=== PATIENT | female | born 1980 | race Caucasian/White ===

== ENCOUNTER 2022-09-18 09:54 | Outpatient (CLI) | payer BC ==
[2022-09-18] MEDS ORDERED: Magnevist 469MG/ML 20 ML VIAL ONE (09:55)
== END 2022-09-18 09:55 | disposition home or self-care (01) ==
LOC: CSHMRI 09:54
PROVIDERS: ATTEND Internal Medicine
DX: Z80.0 Family history of malignant neoplasm of digestive organs (principal); K86.2 Cyst of pancreas
CPT/HCPCS: 74183

== ENCOUNTER 2024-03-02 06:39 | Day surgery (SDC) | payer BC ==
[2024-02-25 08:49] VITALS: BMI 20.9
== END 2024-03-02 15:05 | disposition home or self-care (01) ==
LOC: CSHMAMMO 06:39
PROVIDERS: ATTEND Surgery
PROC: 0HBU0ZZ Excision of Left Breast, Open Approach (ICD-10-PCS; principal; 2024-03-02)
DX: C50.112 Malignant neoplasm of central portion of left female breast (principal); C77.3 Secondary and unspecified malignant neoplasm of axilla and upper limb lymph nodes
CPT/HCPCS: 88305; 88307; 88331

== ENCOUNTER → 2024-03-02 | Day surgery (SDC) | payer BC ==
[~2024-03-02] MED LIST: Bupivacaine HCl 0.5%/Epinephrine 1:200,000/PF 30 ml Vial ONE; Isosulfan Blue 50 MG/5 ML VIAL ONE; Midazolam HCl 2 mg/2 ml Vial ONE
== END ==
LOC: CSHNM 07:02
PROVIDERS: ATTEND Surgery
PROC: 0JPT3WZ Removal of Totally Implantable Vascular Access Device from Trunk Subcutaneous Tissue and Fascia, Percutaneous Approach (ICD-10-PCS; principal; 2024-03-02)
DX: C50.112 Malignant neoplasm of central portion of left female breast (principal); C77.3 Secondary and unspecified malignant neoplasm of axilla and upper limb lymph nodes
CPT/HCPCS: 19285; 76098; 78195; A9541; C1713; J2250; Q9968

== ENCOUNTER 2025-01-07 10:10 | Outpatient (CLI) | payer BC | END 2025-01-07 10:11 | disposition home or self-care (01) | LOC: CSHMAMMO 10:10 | PROVIDERS: ATTEND Surgery | DX: Z08 Encounter for follow-up examination after completed treatment for malignant neoplasm (principal); Z85.3 Personal history of malignant neoplasm of breast | CPT/HCPCS: 77066; G0279 ==